=== PATIENT | male | born 1955 | race Caucasian/White ===

== ENCOUNTER → 2017-08-19 | Outpatient (REF) ==
[~2017-08-19] MED LIST: NO HOME MEDICATIONS
== END ==
LOC: WSOH 11:32
DX: Z02.4 Encounter for examination for driving license (principal)

== ENCOUNTER 2018-12-11 08:29 | Inpatient (IN) | payer BC ==
[~2018-12-11] VITALS: Ht 185.4 cm; Wt 90.5 kg
[2018-12-11] VITALS (299 sets, daily range): BP systolic 107–137; BP diastolic 65–87; PULSE 43–61; TEMP 97.6–98.9; O2SAT 80–100
[2018-12-11 08:59] LABS: BASO % 0.5 % (0.0-2.0); EOS # 0.1 (0.0-0.7); EOS % 0.8 % (0-4.0); GRAN % 75.4 % (42.2-75.2); HEMATOCRIT 45.2 % (42.0-52.0); HEMOGLOBIN 15.5 g/dl (13.5-18.0); LYMPH # 1.3 (1.2-3.4); LYMPH % 15.8 % (20.0-51.0); MEAN CELL VOLUME 93 fl (80.0-100.0); MEAN CORPUSCULAR HEMOGLOBIN 32 pg (27.0-31.0); MEAN CORPUSCULAR HGB CONC 34 g/dl (33.0-37.0); MEAN PLATELET VOLUME 9.5 fl (7.4-10.4); MONO # 0.6 (0.1-0.6); MONO % 7.1 % (1.7-9.3); PLATELET COUNT 231 K/mm3 (130-400); RED BLOOD COUNT 4.86 M/mm3 (4.20-5.60); REDCELL DISTRIBUTION WIDTH-CV 12.4 % (11.5-14.5)
[2018-12-11 09:03] LABS: PROTHROMBIN TIME 11.3 SECONDS (9.7-12.8)
[2018-12-11 09:05] LABS: PARTIAL THROMBOPLASTIN TIME 35.6 SECONDS (26.0-37.0)
[2018-12-11 09:07] LABS: ALBUMIN 4.2 gm/dL (3.5-5.0); BILIRUBIN,TOTAL 0.4 mg/dL (0.0-1.0); CALCIUM 9.3 mg/dL (8.4-10.2); CREATININE, serum 0.71 mg/dL (0.66-1.25); POTASSIUM 3.9 mmol/L (3.4-5.0); TOTAL PROTEIN 7.3 gm/dL (6.4-8.2)
[2018-12-11 09:23] LABS: TROPONIN-I 0.052 ng/mL (0.000-0.034)
[2018-12-11] MEDS ORDERED: THE MEDICINE S200 M2 PO (09:50)
--- NOTE | 2018-12-11 10:15 | NUR ---
ALL MEDICATIONS GIVEN VIA VERBAL ORDER WITH READBACK WITH MD. SEE MERGE FOR ALL MEDICATION ADMIN TIMES. POSITIVE PA'S TEST IN THE RIGHT WRIST.
--- NOTE | 2018-12-11 10:32 | NUR ---
Telephone report recieved from ED nurse ROSHNI Alford
--- NOTE | 2018-12-11 11:40 | NUR ---
MD Leoncio notified of asymptomatic run of Ventricular Tachycardia. No orders other than to continue to monitor.
[2018-12-11] MEDS ORDERED: FLOMAX 0.40.4 MG/CAP PO (11:53)
[2018-12-11 12:00] LABS: CHOLESTEROL RISK RATIO 4.5
--- NOTE | 2018-12-11 12:52 | NUR ---
MD Leoncio and MD Bernardo have both been by to assess pt. Family at bedside and have spoken with both MDs. All questions answered. VSS. Pt tolerating clear liquids without nausea or vomiting. ECHO and carotid ultrasound being performed at bedside. Menu provided for lunch. Call light within reach. No further questions or concerns at this time. R Radial access site stable.
--- NOTE | 2018-12-11 15:33 | NUR ---
Pt's family members stepped out for lunch, 3 emergency contact numbers obtained and charted on [employer] and Physical chart. Pt resting comfortably with TV off and eyes closed. Call light within reach
--- NOTE | 2018-12-11 19:00 | NUR ---
RECEIVED BEDSIDE REPORT FROM ROSHNI KING. PATIENT'S FAMILY AT BEDSIDE. NO COMPLAINTS OR ISSUES AT THIS TIME.
[2018-12-12] VITALS (723 sets, daily range): BP systolic 110–132; BP diastolic 65–83; PULSE 52–62; TEMP 97.9–98.7; O2SAT 73–100
--- NOTE | 2018-12-12 04:00 | NUR ---
Patient resting in bed. No complaints at this time.
[2018-12-12 05:19] LABS: BASO % 0.3 % (0.0-2.0); EOS # 0.1 (0.0-0.7); EOS % 1.2 % (0-4.0); GRAN # 4.8 (1.4-6.5); GRAN % 64.1 % (42.2-75.2); HEMATOCRIT 38.6 % (42.0-52.0); LYMPH % 26.3 % (20.0-51.0); MEAN CELL VOLUME 94 fl (80.0-100.0); MEAN CORPUSCULAR HEMOGLOBIN 32 pg (27.0-31.0); MEAN CORPUSCULAR HGB CONC 34 g/dl (33.0-37.0); MEAN PLATELET VOLUME 9.5 fl (7.4-10.4); MONO # 0.6 (0.1-0.6); MONO % 7.8 % (1.7-9.3); PLATELET COUNT 174 K/mm3 (130-400); REDCELL DISTRIBUTION WIDTH-CV 12.8 % (11.5-14.5)
[2018-12-12 05:20] LABS: HEMOGLOBIN 13.1 g/dl (13.5-18.0)
[2018-12-12 05:31] LABS: CALCIUM 8.4 mg/dL (8.4-10.2); CREATININE, serum 0.7 mg/dL (0.66-1.25); POTASSIUM 4.2 mmol/L (3.4-5.0)
[2018-12-12 05:44] LABS: TROPONIN-I 17.1 ng/mL (0.000-0.034)
--- NOTE | 2018-12-12 07:45 | NUR ---
Bedside report given to ROSHNI Nichols and ROSHNI Martinez. Patient care transfered. Still denies chest pain. Given menu to order breakfast. No complaints or concerns at this time.
--- NOTE | 2018-12-12 07:45 | NUR ---
REPORT RECEIVED AT [facility] FROM ROSHNI LIN.
--- NOTE | 2018-12-12 09:20 | NUR ---
DR. RODRIGUEZ AT BEDSIDE FOR ROUNDS. PLAN DISCUSSED WITH PATIENT.
--- NOTE | 2018-12-12 19:00 | NUR ---
REPORT GIVEN TO ROSHNI BOJORQUEZ. LINES AND MEDICATIONS REVIEWED AT BEDSIDE.
--- NOTE | 2018-12-12 19:10 | NUR ---
Bedside report received from ROSHNI Nichols.
--- NOTE | 2018-12-12 20:00 | NUR ---
Assessment complete at this time. Patient is resting comfortably in bed with family at the bedside. Patient has no complaints of pain. Cath site on right wrist looks clean and dry. Mild swelling noted, but no hematoma and it is not painful. Patient has no further needs at this time. Will continue to monitor. Call light within reach.
[2018-12-13] VITALS (708 sets, daily range): BP systolic 108–152; BP diastolic 76–88; PULSE 50–69; TEMP 98–99; O2SAT 71–100
--- NOTE | 2018-12-13 | NUR ---
Patient made NPO at this time. Patient is resting in bed with the lights off. No current needs at this time. No complaints of pain. Will continue to monitor. Call light within reach.
--- NOTE | 2018-12-13 04:21 | NUR ---
Patient asleep at this time. No current needs. Will continue to monitor. Call light within reach.
[2018-12-13 06:10] LABS: BASO % 0.4 % (0.0-2.0); EOS # 0.1 (0.0-0.7); EOS % 1.9 % (0-4.0); GRAN # 4.9 (1.4-6.5); GRAN % 66.6 % (42.2-75.2); HEMATOCRIT 39.6 % (42.0-52.0); HEMOGLOBIN 13.5 g/dl (13.5-18.0); LYMPH # 1.6 (1.2-3.4); LYMPH % 22.1 % (20.0-51.0); MEAN CELL VOLUME 94 fl (80.0-100.0); MEAN CORPUSCULAR HEMOGLOBIN 32 pg (27.0-31.0); MEAN CORPUSCULAR HGB CONC 34 g/dl (33.0-37.0); MONO # 0.6 (0.1-0.6); MONO % 8.7 % (1.7-9.3); PLATELET COUNT 191 K/mm3 (130-400); RED BLOOD COUNT 4.21 M/mm3 (4.20-5.60); REDCELL DISTRIBUTION WIDTH-CV 12.4 % (11.5-14.5)
[2018-12-13 06:24] LABS: CALCIUM 8.7 mg/dL (8.4-10.2); CREATININE, serum 0.67 mg/dL (0.66-1.25); POTASSIUM 3.8 mmol/L (3.4-5.0)
[2018-12-13 06:49] LABS: TROPONIN-I 7.36 ng/mL (0.000-0.034)
--- NOTE | 2018-12-13 07:15 | NUR ---
Bedside report received from ROSHNI Hernandez.
--- NOTE | 2018-12-13 07:17 | NUR ---
Bedside report given to ROSHNI Alegre
--- NOTE | 2018-12-13 08:00 | NUR ---
Assessment completed. Pt denies any pain at this time. Pt's dtr at bedside. VSS. Pt up to use bathroom. Steady gait. VSS. Will monitor.
--- NOTE | 2018-12-13 09:30 | NUR ---
MIKE Sofia with Dr Chang at bedside. Updated on pt status.
--- NOTE | 2018-12-13 12:00 | NUR ---
Pt in bed talking with family at bedside. States has mild pain in chest but not the same as when he first came in. VSS. No other complaints at this time. Call light in reach.
--- NOTE | 2018-12-13 12:13 | NUR ---
First visit from the row boss hoeing. No needs right now.
--- NOTE | 2018-12-13 13:44 | NUR ---
labor contract analyst RNs here to take pt for left heart catherization. Pt's family to waiting room.
--- NOTE | 2018-12-13 14:03 | NUR ---
ALL MEDICATIONS GIVEN VERBAL ORDER WITH READBACK WITH MD. SEE MERGE FOR ALL MEDICATION ADMIN TIMES.
--- NOTE | 2018-12-13 16:05 | NUR ---
Report received from Tessa Ellison RN.
--- NOTE | 2018-12-13 16:30 | NUR ---
Pt arrived to ICU bed 3 from laboratory supervisor via bed. Pt A/O x3. Denies any chest pain. right groin has safe guard on filled with 40cc air. Right groin soft, no hematoma present. Pedal pulses present. VSS. Discussed POC with pt r/t flat time, circulation checks, and heart cath again tomorrow. Pt verbalized understanding.
--- NOTE | 2018-12-13 18:00 | NUR ---
Cardiac cath consent signed by pt and placed in chart. Provided education r/t heart healthy diet and cardiac rehab after discharge. Pt verbalized understanding. VSS. Pt's dtrs at bedside. Will monitor.
--- NOTE | 2018-12-13 18:59 | NUR ---
Radiology techs here to take pt to CT.
--- NOTE | 2018-12-13 19:30 | NUR ---
Bedside report received from Sis Ghotra RN. Cath site reviewed. Clean, dry, intact.
--- NOTE | 2018-12-13 19:41 | NUR ---
Bedside report given to ROSHNI Judd.
--- NOTE | 2018-12-13 20:00 | NUR ---
Shift assessment complete at this time. Patient is resting in bed currently on flat time post-cath. Patient has no complaints of pain at the site, only mild tenderness when pressure is applied. Vital signs stable. Patient has no current needs at this time. Will continue to monitor. Call light within reach.
--- NOTE | 2018-12-13 20:30 | NUR ---
5ml of air taken out of pressure device at this time. Will continue to remove every hour as long as patient remains stable and there is no bleeding at the site. Site remains clean and dry at this time.
--- NOTE | 2018-12-13 22:30 | NUR ---
Patient is off of flat time post-cath now. Patient is complaining of stiffness in his right knee from having to lay flat. Repositioned for comfort. Air has been continually taken out of pressure device every hour. No signs of bleeding at site. Site remains soft with no hematoma.
[2018-12-14] VITALS (603 sets, daily range): BP systolic 92–130; BP diastolic 57–93; PULSE 54–73; TEMP 98–99.7; O2SAT 64–100
--- NOTE | 2018-12-14 | NUR ---
Patient is laying in bed at this time and looks uncomfortable. Patient states that his right knee is still hurting him. He states "I think it's because we have weather coming in. My leg always gets like this when we have bad weather". Offered to get him some medications for the pain, patient denies need at this time. Placed pillow underneath knee and wrapped with warm blankets. Patient's site remains clean and dry, no hematoma present. Will continue to monitor. Call light within reach.
--- NOTE | 2018-12-14 04:00 | NUR ---
Patient resting in bed at this time. Patient requests to get up to the bathroom. Assisted patient by standby assist. His painful knee makes his walking a little unstable due to limping. Patient remained on the toilet for a short time, but only produced gas. Assisted back to bed. Elevated effected knee onto a pillow. Patient has no further needs at this time. VSS. site remains clean and dry with no hematoma. Will continue to monitor. Call light within reach.
[2018-12-14 05:46] LABS: BASO % 0.2 % (0.0-2.0); EOS % 0.3 % (0-4.0); GRAN % 80.8 % (42.2-75.2); HEMATOCRIT 40.4 % (42.0-52.0); HEMOGLOBIN 13.8 g/dl (13.5-18.0); LYMPH # 0.9 (1.2-3.4); LYMPH % 8.8 % (20.0-51.0); MEAN CELL VOLUME 95 fl (80.0-100.0); MEAN CORPUSCULAR HEMOGLOBIN 32 pg (27.0-31.0); MEAN CORPUSCULAR HGB CONC 34 g/dl (33.0-37.0); MONO % 9.6 % (1.7-9.3); PLATELET COUNT 203 K/mm3 (130-400); RED BLOOD COUNT 4.27 M/mm3 (4.20-5.60); REDCELL DISTRIBUTION WIDTH-CV 12.4 % (11.5-14.5)
[2018-12-14 05:58] LABS: CREATININE, serum 0.72 mg/dL (0.66-1.25); POTASSIUM 4.1 mmol/L (3.4-5.0)
--- NOTE | 2018-12-14 07:38 | NUR ---
Bedside report received from ROSHNI Judd. Care of patient assumed at this time. Significant swelling of right knee noted during report. Pulses palpable. No bleeding or swelling at right groin site. Will continue to monitor.
--- NOTE | 2018-12-14 07:40 | NUR ---
Bedside report given to ROSHNI Escobar.
--- NOTE | 2018-12-14 08:47 | NUR ---
Patient assessment complete. Patient resting in bed, denies any chest pain or shortness of breath. Patient does state he is having right knee pain. Right knee does appear to be swollen, and is warm to the touch. No redness noted. Right groin site is soft, and non-tender with dressing still in place. Right radial site is open to air. Will continue to monitor.
--- NOTE | 2018-12-14 11:20 | NUR ---
Patient leaves for laborer heading, transported by bed, at this time.
--- NOTE | 2018-12-14 11:38 | NUR ---
ALL MEDS GIVEN WITH VERBAL ORDER FROM MD. SEE MERGE FOR ADMIN TIMES.
--- NOTE | 2018-12-14 13:36 | NUR ---
Patient arrives back to ICU room 3 by bed. Terra RN, accompanies patient. Left groin site is soft, non-tender, with no signs of bleeding. Pulses all palpable. Patient is drowsy but oriented. RT present to obtain post intervention EKG. Report received from Terra prior to patient arrival. Will continue to monitor.
--- NOTE | 2018-12-14 16:00 | NUR ---
Patient resting in bed. Denies any pain at this time. Left groin site continues to be free from signs of bleeding, is soft and non-tender. Patient denies any chest pain or shortness of breath. Will continue to monitor.
--- NOTE | 2018-12-14 19:27 | NUR ---
Bedside report given to ROSHNI Judd.
--- NOTE | 2018-12-14 19:30 | NUR ---
Bedside report received from ROSHNI Escobar. Cath site reviewed. Appears clean and dry. Pulses good. Transfer of care at this time.
--- NOTE | 2018-12-14 20:00 | NUR ---
Shift assessment complete at this time. Patient is resting in bed. Requests to get up to the restroom. Standby assist. Patient still limps when walking and cries out when knee is bent to sit down. Pain medication to be provided. Patient produces a stool and returns to bed. Patient rates the pain in his knee a 10/10. Patient has no further needs at this time. He is comfortable in bed. Will continue to monitor. Call light within reach.
--- NOTE | 2018-12-14 22:00 | NUR ---
Assisted patient with bedbath and set up for brushing his teeth. Patient was independent in doing the activities. Patient says he is ready for bed now. Will continue to monitor. Call light within reach.
[2018-12-15] VITALS (269 sets, daily range): BP systolic 103–122; BP diastolic 63–89; PULSE 53–73; TEMP 98.3–98.7; O2SAT 84–100
--- NOTE | 2018-12-15 | NUR ---
Patient awake and laying in bed at this time. Patient appears to be feeling better and states that the pain medication helped a lot. Patient has no needs at this time. VS remain stable. All cath sites remain clean and dry. Will continue to monitor. Call light within reach.
--- NOTE | 2018-12-15 04:00 | NUR ---
Patient sleeping comfortably at this time. Easily awakens. Patient says that overall he is not in any pain, but his knee still aches. He does not give the pain in his knee a number. Patient has no further needs at this time. Will continue to monitor. Call light within reach.
[2018-12-15 06:40] LABS: BASO % 0.4 % (0.0-2.0); EOS # 0.2 (0.0-0.7); EOS % 2.1 % (0-4.0); GRAN # 4.8 (1.4-6.5); GRAN % 67.7 % (42.2-75.2); HEMOGLOBIN 13.2 g/dl (13.5-18.0); LYMPH # 1.3 (1.2-3.4); LYMPH % 18.8 % (20.0-51.0); MEAN CELL VOLUME 95 fl (80.0-100.0); MEAN CORPUSCULAR HEMOGLOBIN 32 pg (27.0-31.0); MEAN CORPUSCULAR HGB CONC 34 g/dl (33.0-37.0); MEAN PLATELET VOLUME 9.8 fl (7.4-10.4); MONO # 0.8 (0.1-0.6); MONO % 10.7 % (1.7-9.3); PLATELET COUNT 172 K/mm3 (130-400); RED BLOOD COUNT 4.09 M/mm3 (4.20-5.60); REDCELL DISTRIBUTION WIDTH-CV 12.5 % (11.5-14.5)
[2018-12-15 06:55] LABS: CALCIUM 8.9 mg/dL (8.4-10.2); CREATININE, serum 0.78 mg/dL (0.66-1.25); POTASSIUM 4.6 mmol/L (3.4-5.0)
--- NOTE | 2018-12-15 06:57 | NUR ---
Safegaurd dressing removed at this time. Site is clean and dry, no bruising or hematoma. No bandage applied, open to air.
--- NOTE | 2018-12-15 07:08 | NUR ---
Bedside report given to ROSHNI Alegre. Cath sites reviewed, clean dry, intact, and open to air. No hematoma present. Transfer of care at this time.
--- NOTE | 2018-12-15 07:10 | NUR ---
Bedside report received from ROSHNI Judd.
--- NOTE | 2018-12-15 08:00 | NUR ---
Assessment completed. Pt's right knee still swollen. States pain in minimal. ice pack placed on right knee. VSS. Call light in reach.
--- NOTE | 2018-12-15 09:08 | NUR ---
Plans to return home with DTR Ad[place] . EMR contact Joaquín-Son . Patient reports that he is independent. Patient denies the use of any medical equipment. Patient reports that he resides with DTR in [facility]. Patient reports that he has a recent switch in PCP and does not remember who it is. Patient reports he does not have a DPOA and will set one up with his family soon. Patient reports that he uses [facility] and [facility] for RX. Patient reports that he doesn't have any care concerns. No additonal needs identified at this time.
--- NOTE | 2018-12-15 10:30 | NUR ---
Notified Dr Chang's PA, Kimberlyn that Dr Eubanks has seen pt and will see him as outpt.
[2018-12-15] MEDS ORDERED: BRILINTA90 MG PO (11:20)
[2018-12-15] MEDS ORDERED: LIPITOR 40MG TA40 MG PO (11:20)
[2018-12-15] MEDS ORDERED: ASPIRIN E.C. 8181 MG PO (11:21)
[2018-12-15] MEDS ORDERED: ZESTRIL2.5 MG PO (11:21)
[2018-12-15] MEDS ORDERED: NITROSTAT0.4 MG/TAB SL (11:21)
== END 2018-12-15 13:20 | disposition home or self-care (01) | DRG 246 ==
LOC: COL.ER 08:29 → ICU 09:46
PROVIDERS: Emergency Medicine; Internal Medicine Cardiovascular Disease; Physician Assistant; ADMIT Internal Medicine
PROC: 4A023N7 Measurement of Cardiac Sampling and Pressure, Left Heart, Percutaneous Approach (ICD-10-PCS; principal; 2018-12-11)
PROC: 027035Z Dilation of Coronary Artery, One Artery with Two Drug-eluting Intraluminal Devices, Percutaneous Approach (ICD-10-PCS; 2018-12-11)
PROC: B2111ZZ Fluoroscopy of Multiple Coronary Arteries using Low Osmolar Contrast (ICD-10-PCS; 2018-12-11)
PROC: B2151ZZ Fluoroscopy of Left Heart using Low Osmolar Contrast (ICD-10-PCS; 2018-12-11)
PROC: 027036Z Dilation of Coronary Artery, One Artery with Three Drug-eluting Intraluminal Devices, Percutaneous Approach (ICD-10-PCS; 2018-12-13)
PROC: B2111ZZ Fluoroscopy of Multiple Coronary Arteries using Low Osmolar Contrast (ICD-10-PCS; 2018-12-13)
PROC: 027035Z Dilation of Coronary Artery, One Artery with Two Drug-eluting Intraluminal Devices, Percutaneous Approach (ICD-10-PCS; 2018-12-14)
PROC: B2111ZZ Fluoroscopy of Multiple Coronary Arteries using Low Osmolar Contrast (ICD-10-PCS; 2018-12-14)
DX: I21.19 ST elevation (STEMI) myocardial infarction involving other coronary artery of inferior wall (principal); I25.119 Atherosclerotic heart disease of native coronary artery with unspecified angina pectoris; M25.561 Pain in right knee; F17.210 Nicotine dependence, cigarettes, uncomplicated; I10 Essential (primary) hypertension; I65.23 Occlusion and stenosis of bilateral carotid arteries; I73.9 Peripheral vascular disease, unspecified; I25.5 Ischemic cardiomyopathy; M25.461 Effusion, right knee
CPT/HCPCS: 99223-AI; 99232-AI; 99233-AI; 99239; C1725; C1760; C1769; C1874; C1887; C1894; C9600; J0583; J1200; J1644; J2250; J3010; J7030; Q9967

== ENCOUNTER 2019-04-02 09:35 | Emergency (ER) | payer BC ==
[~2019-04-02] VITALS: Ht 185.4 cm; Wt 88.2 kg
[~2019-04-02 09:35] MED LIST changes: +ASPIRIN E.C. 8181 MG PO; +BRILINTA90 MG PO; +FLOMAX 0.40.4 MG/CAP PO; +LIPITOR 40MG TA40 MG PO; +NITROSTAT0.4 MG/TAB SL; +THE MEDICINE S200 M2 PO; +ZESTRIL2.5 MG PO
[2019-04-02 09:39] VITALS: TEMP 98.6
[2019-04-02 10:09] LABS: HEMATOCRIT 38.9 % (42.0-52.0); HEMOGLOBIN 13.2 g/dl (13.5-18.0); MEAN CELL VOLUME 94 fl (80.0-100.0); MEAN CORPUSCULAR HEMOGLOBIN 32 pg (27.0-31.0); MEAN CORPUSCULAR HGB CONC 34 g/dl (33.0-37.0); MEAN PLATELET VOLUME 9.7 fl (7.4-10.4); PLATELET COUNT 151 K/mm3 (130-400); RED BLOOD COUNT 4.14 M/mm3 (4.20-5.60); REDCELL DISTRIBUTION WIDTH-CV 12.3 % (11.5-14.5)
[2019-04-02] MEDS ORDERED: COREG 3.123.125 MG/T PO (10:13)
[2019-04-02 10:19] LABS: BILIRUBIN,TOTAL 0.7 mg/dL (0.0-1.0); CALCIUM 8.6 mg/dL (8.4-10.2); CREATININE, serum 0.75 (0.66-1.25); POTASSIUM 4.2 mmol/L (3.4-5.0); TOTAL PROTEIN 7.1 gm/dL (6.4-8.2)
[2019-04-02 10:24] LABS: BAND 1 % (0-10); BASOPHIL 1 % (0-2); LYMPHOCYTE 21 % (20.0-51.0); NEUTROPHILS 71 % (42.0-75.2); PLATELET ESTIMATE NORMAL (NORMAL)
[2019-04-02] MEDS ORDERED: AMOXICILLIN 8751 TAB PO (10:43)
[2019-04-02 10:51] VITALS: BP 112/60; PULSE 66
== END 2019-04-02 10:54 | disposition home or self-care (01) ==
LOC: COL.ER 09:35
PROVIDERS: Emergency Medicine
DX: J32.9 Chronic sinusitis, unspecified (principal); I25.10 Atherosclerotic heart disease of native coronary artery without angina pectoris; Z87.891 Personal history of nicotine dependence; Z79.82 Long term (current) use of aspirin